=== PATIENT | male | born 1965 | race Caucasian/White ===

== ENCOUNTER 2022-05-27 00:59 | Inpatient (IN) | payer BC ==
[~2022-05-27] VITALS: Ht 177.8 cm; Wt 81.2 kg
[2022-05-27 01:13] VITALS: BP_SYST 126
[2022-05-27] MEDS ORDERED: ONDANSETRON HCL 4 MG/2 ML VIAL IVP ONE (01:30)
[2022-05-27] MEDS ORDERED: NACL 0.9% 1,000 ML IV ONE ×2 (01:30→03:30)
[2022-05-27] MEDS ORDERED: KETOROLAC TROMETHAMINE 30 MG VIAL IVP ONE (01:45)
[2022-05-27] MEDS ORDERED: KETOROLAC TROMETHAMINE 30 MG VIAL ONE (01:49)
[2022-05-27 02:19] LABS: BASOPHILS % (AUTO) 0.4 % (0.0-2.0); EOSINOPHILS % (AUTO) 0.2 % (0.0-4.0); HEMATOCRIT 44.9 % (36-54); HEMOGLOBIN 15.3 g/dL (14.0-18.0); LYMPHOCYTES # (AUTO) 0.2 K/uL (1.0-5.5); MEAN CORPUSCULAR HEMOGLOBIN 30 pg (27-31); MEAN CORPUSCULAR HGB CONC 34 % (32-36); MEAN CORPUSCULAR VOLUME 88 fL (79.0-98.0); MONOCYTES # (AUTO) 0.4 K/uL (0.0-1.0); NEUTROPHILS # (AUTO) 9.5 K/uL (1.8-7.7); NEUTROPHILS % (AUTO) 93.4 % (40.0-70.0); PLATELET COUNT (AUTO) 204 K/uL (130-430); RED CELL DISTRIBUTION WIDTH 13.4 % (9.0-15.0); WHITE BLOOD COUNT (AUTO) 10.2 K/uL (4.8-10.8)
[2022-05-27 02:21] LABS: ANION GAP 13 (5-15); CHLORIDE 99 mmol/L (98-107); CREATININE 1.27 mg/dL (0.55-1.30); GLUCOSE 180 mg/dL (70-99); UREA NITROGEN, BLOOD 27 mg/dL (8-21)
[2022-05-27 02:22] LABS: GFR AFRICAN AMERICAN 75 mL/min (>90)
[2022-05-27 02:28] LABS: ALANINE AMINOTRANSFERASE 54 U/L (12-78); ALBUMIN 4.6 g/dL (3.4-4.8); ASPARTATE AMINOTRANSFERASE 24 U/L (10-37); LIPASE 187 U/L (73-393)
[2022-05-27] MEDS ORDERED: PIPERACILLIN/TAZO 3.375 GM in NS 50 ML IV ONE ×2 (03:30→12:30)
[2022-05-27] MEDS ORDERED: HYDROmorphone 1 MG/ML INJ. CARTRIDGE IVP PRN (03:45)
[2022-05-27] MEDS ORDERED: ACETAMINOPHEN 325 MG TABLET PO PRN (03:45)
[2022-05-27] MEDS ORDERED: PIPERACILLIN/TAZOBACTAM 3.375 GM/VIAL (ZOSYN) IV ONE (04:04)
[2022-05-27] MEDS: KCL 20 mEq in D5/0.45NS 1000mL 1,000 ML IV SCH ×3 (04:07→22:20)
[2022-05-27] MEDS ORDERED: ROSU10TA2 PO (04:18)
[2022-05-27] MEDS ORDERED: ZOLP10TA2 PO (04:18)
[2022-05-27 04:44] VITALS: BP_SYST 123
[2022-05-27 04:59] LABS: BILIRUBIN,URINE 1+ (NEGATIVE); BLOOD, URINE NEGATIVE (NEGATIVE); CLARITY/URINE CLEAR (CLEAR); COLOR,URINE YELLOW (YELLOW); GLUCOSE,URINE NEGATIVE (NEGATIVE); KETONES,URINE 3+ (NEGATIVE); LEUKOCYTE ESTERASE ,URINE NEGATIVE (NEGATIVE); NITRITE, URINE NEGATIVE (NEGATIVE); PROTEIN URINE TRACE (NEGATIVE); UROBILINOGEN,URINE 0.2 (0.2-1.0)
[2022-05-27 05:13] LABS: BACTERIA,URINE None Seen /HPF (None Seen); MUCUS,URINE 1+ /LPF (None Seen); RBC,URINE 0-3 /HPF (0-3); WBC,URINE 0-3 /HPF (0-3)
[2022-05-27 05:18] LABS: BARBITURATE, URINE NEGATIVE (NEG <=200); BENZODIAZEPINE, URINE NEGATIVE (NEG <=150); CANNABINOID, URINE NEGATIVE (NEG <=50); COCAINE, URINE NEGATIVE (NEG <=150); METHAMPHETAMINES SCREEN,URINE NEGATIVE (NEG <=500); OPIATE, URINE NEGATIVE (NEG <=100); PHENCYCLIDINE SCREEN,URINE NEGATIVE (NEG <=25); UR TRICYCLIC ANTIDEPRESSANTS NEGATIVE (NEG <=300); URINE AMPHETAMINE NEGATIVE (NEG <=500); URINE METHADONE NEGATIVE (NEG <=200); URINE OXYCODONE SCREEN NEGATIVE (NEG <=100); URINE PROPOXYPHENE SCREEN NEGATIVE (NEG <=300)
[2022-05-27 08:00] VITALS: BP_SYST 125
[2022-05-27] MEDS ORDERED: PIPERACILLIN/TAZO 3.375 GM in NS 50 ML IV SCH (12:00)
[2022-05-27] MEDS: PIPERACILLIN/TAZO 3.375 GM in NS 50 ML IV SCH ×2 (17:14→23:41)
[2022-05-27 20:00] VITALS: BP_SYST 122
[2022-05-28] VITALS: BP_SYST 108
[2022-05-28] MEDS: PIPERACILLIN/TAZO 3.375 GM in NS 50 ML IV SCH (05:43)
[2022-05-28 08:12] VITALS: BP_SYST 104
[2022-05-28 11:36] VITALS: BP_SYST 114
[2022-05-28 15:26] VITALS: BP_SYST 114
[2022-05-28 17:03] VITALS: BP_SYST 114
== END 2022-05-28 16:45 | disposition home or self-care (01) | DRG 392 ==
LOC: SED 00:59 → SMU 03:40
PROVIDERS: ADMIT Family Medicine; ATTEND Family Medicine
DX: K52.9 Noninfective gastroenteritis and colitis, unspecified (principal); E78.5 Hyperlipidemia, unspecified; G89.29 Other chronic pain; E78.00 Pure hypercholesterolemia, unspecified; I44.7 Left bundle-branch block, unspecified; M54.9 Dorsalgia, unspecified; Z20.822 Contact with and (suspected) exposure to COVID-19
CPT/HCPCS: 36415; 71045; 76376; 80053; 80307; 81000; 82550; 83605; 83690; 84484; 85025; 87040; 87081; 87086; 93005; 96361; 96365; 96375; 99291; J1885; J2405; J2543